=== PATIENT | female | born 1960 | race Caucasian/White ===

== ENCOUNTER 2023-08-09 11:09 | Day surgery (SDC) | payer MEDICARE ==
[2023-08-09] MEDS ORDERED: Sodium Chloride 0.9(Preservative Free) 10 ML IJ ONE (11:10)
[2023-08-09] MEDS ORDERED: Depo-Medrol 40 MG/ML IM ONE (11:10)
[2023-08-09] MEDS ORDERED: DIPRIVAN 200 MG/20 ML IV ONE (13:25)
[2023-08-09] MEDS ORDERED: Versed 2 MG/2 ML Injection ONE (13:25)
--- NOTE | 2023-08-09 14:34 | XRAY ---
Indication: Left L4-S1 transforaminal ERICKA. Intraoperative fluoroscopy provided for 42 seconds. 4 digital spot images submitted for interpretation demonstrates posterior needle tips projecting over the expected left L4 and L5 nerve roots. Small amount of contrast injected for needle tip placement. Correlate with intraoperative findings/report.
[2023-08-09] MEDS ORDERED: Lactated Ringers 1,000 ML IV ONE (14:54)
--- NOTE | 2023-08-09 15:00 | XRAY ---
42 seconds of fluoroscopy was used in surgery for a left L4-S1 transforaminal ERICKA.
== END 2023-08-09 13:55 | disposition home or self-care (01) ==
LOC: SDC-PAIN 11:09
PROVIDERS: ATTEND Psychiatry & Neurology Pain Medicine
DX: M54.16 Radiculopathy, lumbar region (principal)
CPT/HCPCS: 64483; 64484; 72100; 77003; J1030; J2250; J2704; Q9966